=== PATIENT | female | born 1960 | race Two or more races ===

== ENCOUNTER 2024-05-19 08:15 | Outpatient (AMB) | payer MEDICARE, MEDICAID, SELFPAY ==
[2024-05-19 08:26] VITALS: BP 111/72; PULSE 76; RESP 18; TEMP 36.1; O2SAT 98; BMI 37.8
--- NOTE | 2024-05-19 08:26 | ORTHONT_ITS ---
Vital signs 05/19/24 08:26 Height 1.6 m Height Method Stated Weight 96.729 kg Weight Measurement Method Standing Scale BMI 37.8 BP 111/72 Blood Pressure Source Automatic Cuff Blood Pressure Location Right Upper Arm Position Sitting Respiration 18 Pulse 76 Pulse Source Monitor Temp 96.9 F Temp Source Temporal Artery Scan Pulse Oximetry (%) 98 Oxygen Delivery Method Room Air Med/Allergies Allergies & Medications Allergies Penicillins Allergy (Verified 05/19/24 08:27) Hives Medication Reconciliation celecoxib 200 mg capsule 200 mg PO BID 05/09/18 [History Confirmed 05/19/24] lisinopril 20 mg tablet 20 mg PO BID 05/09/18 [History Confirmed 05/19/24] omeprazole 20 mg tablet,delayed release 20 mg PO QDAY 05/09/18 [History Confirmed 05/19/24] hydrocodone 5 mg-acetaminophen 325 mg tablet ([place]) 1 tab PO Q6H PRN Pain 07/15/18 [History Confirmed 05/19/24] amlodipine 5 mg tablet 5 mg PO QDAY 05/19/24 [History Confirmed 05/19/24] atorvastatin 40 mg tablet 40 mg PO QDAY 05/19/24 [History Confirmed 05/19/24] Exam Exam Patient is in no acute distress and is cooperative with the examination today. Breathing is nonlabored. Patient has a normal mood and affect. Bilateral extremities were evaluated and demonstrates sensation intact to light touch. Palpable pedal pulses are present. No significant edema is present. Bilateral hips were examined. The patient has no pain with log roll of the hips. Internal rotation to 30 degrees and external rotation to 30 degrees is painless. Negative FADIR. Left knee was examined today. The left knee is in reasonable alignment. Range of motion from 0-120 degrees. Knee is stable to varus and valgus as well as AP translation with <5mm. Patient has a negative McMurrays. There is no pain with patellofemoral compression and no crepitus noted. The knee is nontender to palpation. The right knee was also examined. The right knee is in [varus] alignment. Range of motion from [0-115] degrees. Knee is stable to varus and valgus as well as AP translation with <5mm. Patient has a [negative] McMurrays. There is [no] pain with patellofemoral compression and [no] crepitus noted. The knee is [tender] to palpation [medially]. Patient has an MRI which demonstrates right knee arthritis of significant severity with a extruded meniscus and osteophytes medial Assessment and Plan Problem List (1) Arthritis of right knee: Status: Acute Plan: Patient is a 63-year-old female with right knee pain and right knee arthritis of significant severity. I would like to get x-rays to better Assess for arthritis. We will likely start with conservative treatment. Office Procedures GNS Level of Care Nursing/Assessment Patient Status: Initial/New Patient Nursing Assessment/Reassesment: Medication Reconciliation, Update PMH in EMR and Vital Signs Coordination of Care: Complex Care and Chronic Disease 1-5, Education Complex Pt/Fam, Consent,records obtained, informed consent, 1 Ins Authorization and Staff clarify orders Special Needs: Language special needs New Patient Charge New Patient Point Assignment: 8716 New Patient Point Charge: BR[employer]OOM CLIPPER Level 3 ([id number]) MA Intake Visit Data Collection New Patient or Established: New Patient (never been to [facility]) Reason for Visit:: RT KNEE PAIN Seen by Clinical Staff ONLY (RN/MA): No Kiosk Sales Representative Required: Yes PCP or OBGYN visit in last 3 months: Yes Hx Now: No Do You Feel Safe at Home: Yes Questionairres Past Medical History Past Medical History Have you ever been diagnosed with any of the following: Neurological Problems Seizures: No Cardiology Problems Congestive Heart Failure: No Hypertension: Yes (TAKES MEDS) Respiratory Problems Chronic Obstructive Pulmonary Disease (COPD): No Smoking: No Smoking Exposure: No Stomache/Intestinal Problems Gastrointestinal Bleed: Yes Genital/Urinary Problems Renal Disease: No Endocrine Problems Diabetes Mellitus Type 1: No Diabetes Mellitus Type 2: No Blood Problems Anemia: Yes Psychologic Problems Depression: Yes Anxiety: Yes Other Problems Blood Transfusions: No Anesthesia Reactions: No Subjective Visit Visit for: new patient and knee Immunization / Flu Flu Vaccine in the Last 12 Months: Yes Flu Vaccine Exclusion Criteria: Already Received History of Present Illness Chief complaint: RT KNEE PAIN Date of injury / onset of symptoms: 7 MONTHS AGO Gifty is a 63-year-old female with right knee pain and right knee arthritis. It has been ongoing for over 6 months. She has been on Celebrex. She walks with a limp because of the pain. SHe has not had any injections Personal History Occupation: UNEMPLOYED BMI Counceling provided: Yes Pain Pain level (0-10): 7 Pain duration: WITH MOVEMENT Pain location: inside (medial), outside (lateral), anterior and posterior Pain quality: sharp and aching Pain timing: increases with activity Associated signs & symptoms: none Ambulatory data Ambulatory device: none (KNEE BRACE) Walking distance (minutes): 15 Treatments Improvement with NSAIDS: yes Review of Systems Review of Systems: All systems negative unless otherwise noted in HPI.
== END 2024-05-19 08:56 | disposition home or self-care (01) ==
LOC: HODSRG 08:15
PROVIDERS: PCP Student in an Organized Health Care Education/Training Program; Referring Provider Student in an Organized Health Care Education/Training Program; Supervising Provider Orthopaedic Surgery Adult Reconstructive Orthopaedic Surgery; Visit Provider Orthopaedic Surgery Adult Reconstructive Orthopaedic Surgery
DX: M17.11 Unilateral primary osteoarthritis, right knee (principal); M25.561 Pain in right knee; I10 Essential (primary) hypertension
CPT/HCPCS: 73564; 99203; G0463

== ENCOUNTER 2024-05-23 08:07 | Outpatient (AMB) | payer MEDICARE, MEDICAID, SELFPAY ==
[2024-05-23 08:51] VITALS: BP 126/73; PULSE 75; RESP 18; TEMP 36.3; O2SAT 96; BMI 37.5
--- NOTE | 2024-05-23 08:51 | ORTHONT_ITS ---
Vital signs 05/23/24 08:51 Height 1.6 m Height Method Stated Weight 95.935 kg Weight Measurement Method Standing Scale BMI 37.5 BP 126/73 Blood Pressure Source Automatic Cuff Blood Pressure Location Right Upper Arm Position Sitting Respiration 18 Pulse 75 Pulse Source Monitor Temp 97.3 F Temp Source Temporal Artery Scan Pulse Oximetry (%) 96 Oxygen Delivery Method Room Air Med/Allergies Allergies & Medications Allergies Penicillins Allergy (Verified 05/23/24 08:52) Hives Medication Reconciliation celecoxib 200 mg capsule 200 mg PO BID 05/09/18 [History Confirmed 05/23/24] lisinopril 20 mg tablet 20 mg PO BID 05/09/18 [History Confirmed 05/23/24] omeprazole 20 mg tablet,delayed release 20 mg PO QDAY 05/09/18 [History Confirmed 05/23/24] hydrocodone 5 mg-acetaminophen 325 mg tablet ([place]) 1 tab PO Q6H PRN Pain 07/15/18 [History Confirmed 05/23/24] amlodipine 5 mg tablet 5 mg PO QDAY 05/19/24 [History Confirmed 05/23/24] atorvastatin 40 mg tablet 40 mg PO QDAY 05/19/24 [History Confirmed 05/23/24] Exam Exam Patient is in no acute distress and is cooperative with the examination today. Breathing is nonlabored. Patient has a normal mood and affect. Bilateral extremities were evaluated and demonstrates sensation intact to light touch. Palpable pedal pulses are present. No significant edema is present. Bilateral hips were examined. The patient has no pain with log roll of the hips. Internal rotation to 30 degrees and external rotation to 30 degrees is painless. Negative FADIR. Left knee was examined today. The left knee is in reasonable alignment. Range of motion from 0-120 degrees. Knee is stable to varus and valgus as well as AP translation with <5mm. Patient has a negative McMurrays. There is no pain with patellofemoral compression and no crepitus noted. The knee is nontender to palpation. The right knee was also examined. The right knee is in [varus] alignment. Range of motion from [0-115] degrees. Knee is stable to varus and valgus as well as AP translation with <5mm. Patient has a [negative] McMurrays. There is [no] pain with patellofemoral compression and [no] crepitus noted. The knee is [tender] to palpation [medially]. Patient has an MRI which demonstrates right knee arthritis of significant severity with a extruded meniscus and osteophytes medial X-rays demonstrate severe arthritis of the right knee with complete obliteration of the right medial joint space Assessment and Plan Problem List (1) Arthritis of right knee: Status: Acute Plan: Patient is a 63-year-old female with right knee pain and right knee arthritis of significant severity. The patient has significant arthritis. She has not had significant conservative treatment. We will start with a cortisone injection today.I discussed with her that it is possible that it does not work given the severity of arthritis . We attempted to do a knee injection today. Once again her knee she is in extreme pain and is very anxious. She would not let me touch her knee and thus we aborted the injection. Given her anxiety and sensitivity to pain, We discussed that if she cannot even tolerate an injection or may moving her knee around, that she is unlikely to do well with surgery. It appears that she does have poor coping mechanisms and I thus would recommend pain management is a surgery and apparently even cortisone injections are not an option due to anxiety and fear. She has been to the emergency room several times within the past year due to pain and arthritis of the right knee. We again discussed that given her pain threshold I do not think that she will do well with surgery and be a surgical candidate as I have a lot of fear of her compliance. I recommend she see either a another surgeon or a pain management doctor as I do not think surgery is a reasonable option Office Procedures GNS Level of Care Nursing/Assessment Patient Status: Established Patient Nursing Assessment/Reassesment: Medication Reconciliation, Update PMH in EMR and Vital Signs Coordination of Care: Complex Care and Chronic Disease 1-5, Education Complex Pt/Fam, Consent,records obtained, informed consent, Results/Orders obtained and Staff clarify orders Special Needs: Language special needs Established Patient Charge Established Patient Point Assignment: 95 Established Patient Point Charge: EP Level 3 (80-115) MA Intake Visit Data Collection New Patient or Established: Established Patient (seen at [facility] within 3 years) Reason for Visit:: F/U ON XRAYS Seen by Clinical Staff ONLY (RN/MA): No Verbal consent obtained for Telemed visit?: No Heat Seal Operator Required: Yes PCP or OBGYN visit in last 3 months: Yes Hx Now: No Do You Feel Safe at Home: Yes Authorities Contacted: N/A Questionairres Past Medical History Past Medical History Have you ever been diagnosed with any of the following: Neurological Problems Seizures: No Cardiology Problems Congestive Heart Failure: No Hypertension: Yes (TAKES MEDS) Respiratory Problems Chronic Obstructive Pulmonary Disease (COPD): No Smoking: No Smoking Exposure: No Stomache/Intestinal Problems Gastrointestinal Bleed: Yes Genital/Urinary Problems Renal Disease: No Endocrine Problems Diabetes Mellitus Type 1: No Diabetes Mellitus Type 2: No Blood Problems Anemia: Yes Psychologic Problems Depression: Yes Anxiety: Yes Other Problems Blood Transfusions: No Anesthesia Reactions: No Subjective Visit Visit for: new patient, follow up visit, knee and x-rays Immunization / Flu Flu Vaccine in the Last 12 Months: No Flu Vaccine Exclusion Criteria: No Exclusion Criteria and Already Received History of Present Illness Chief complaint: F/U XRAYS Date of injury / onset of symptoms: 7 MONTHS AGO Gifty is a 63-year-old female with right knee pain and right knee arthritis. This has been ongoing for over 6 months. She has been on Celebrex. She walks with a limp because of the pain. SHe has not had any injections Personal History Occupation: UNEMPLOYED Red flag PMH: BMI BMI Counceling provided: Yes Pain Pain level (0-10): 8 Pain duration: ALL DAY Pain location: inside (medial), outside (lateral), anterior and posterior Pain quality: sharp, aching, burning and shocking Pain timing: increases with activity Associated signs & symptoms: none Ambulatory data Ambulatory device: none Walking distance (minutes): 15 Treatments Improvement with previous injections: No Improvement with PT: No Improvement with NSAIDS: n/a Review of Systems Review of Systems: All systems negative unless otherwise noted in HPI.
== END 2024-05-23 09:13 | disposition home or self-care (01) ==
LOC: HODSRG 08:07
PROVIDERS: PCP Student in an Organized Health Care Education/Training Program; Referring Provider Student in an Organized Health Care Education/Training Program; Supervising Provider Orthopaedic Surgery Adult Reconstructive Orthopaedic Surgery; Visit Provider Orthopaedic Surgery Adult Reconstructive Orthopaedic Surgery
DX: M17.11 Unilateral primary osteoarthritis, right knee (principal); M25.561 Pain in right knee; I10 Essential (primary) hypertension; F41.9 Anxiety disorder, unspecified
CPT/HCPCS: 99213; J3301; J3490; G0463

== ENCOUNTER → 2024-06-14 | Outpatient (CLI) | payer MEDICARE, MEDICAID, SELFPAY ==
[2024-06-13 10:49] LABS: Basophils % (Auto) 1 % (0-2.5); Eosinophils # (Auto) 0.4 Thou/mm3 (0.0-0.5); Eosinophils % (Auto) 6 % (0-10); Hematocrit 37.9 % (36.0-46.0); Hemoglobin 12.8 g/dL (12.0-16.0); Immature Granulocytes % (Auto) 0 % (0-0); Immature Granulocytes Auto 0.01 Thou/mm3 (0.00-0.00); Lymphocytes # (Auto) 2.5 Thou/mm3 (1.0-4.8); Lymphocytes % (Auto) 40 % (10-50); Mean Corpuscular HGB Conc 33.8 g/dl (31.0-37.0); Mean Corpuscular Hemoglobin 29.4 pg (25.0-35.0); Mean Corpuscular Volume 87 fL (80-100); Monocytes # (Auto) 0.7 Thou/mm3 (0.0-0.8); Monocytes % (Auto) 11 % (0-12); Neutrophils # (Auto) 2.7 Thou/mm3 (1.8-7.7); Neutrophils % (Auto) 43 % (37-80); Nucleated Red Blood Cell % 0 /100 WBC (0); Platelet Count 190 Thou/mm3 (140-440); RDW Standard Deviation 43.9 fL (36.4-46.3); Red Blood Count 4.35 Miln/mm3 (4.00-5.20); White Blood Count 6.3 Thou/mm3 (3.6-11.0)
[2024-06-13 11:00] LABS: Partial Thromboplastin Time 26.4 Seconds (22.0-36.0); Prothrombin Time 10.8 Seconds (9.0-12.2)
--- NOTE | 2024-06-14 08:30 | XR_ITS ---
Examinations: Ultrasound-guided percutaneous breast biopsy, right complete Right breast sonography limited. Exam date and time: June 14, 2024 0902 hours INDICATIONS: Right breast sonogram March 30, 2024 BI-RADS 4 suspicious mass 1:00 position right breast. Informed consent provided. Technique: A timeout was completed verifying correct patient, procedure, site, positioning, and special equipment if applicable Informed consent provided. The patient was placed in a supine position for the breast biopsy. Sonographic images of the breast were performed for localization of the suspicious nodule The patient's breast was prepped and draped in sterile fashion. Maximum sterile barrier technique, hand hygiene, ultrasound sterile technique 1% lidocaine was used to anesthetize the skin and breast adjacent to the suspicious nodule. Utilizing ultrasonographic guidance, 8 core biopsies were obtained of the suspicious nodule utilizing an 18-gauge BioPince needle. The specimens appears satisfactory. US guided breast biopsy marker placement. Estimated blood loss 3 cc. The patient tolerated the procedure well and there were no complications. Impression: Successful ultrasound-guided percutaneous breast biopsy, right breast 1:00 nodule. Ultrasound guided breast biopsy marker placement.
== END | disposition home or self-care (01) ==
LOC: SDIM 08:13 → SIRX 08:38
PROVIDERS: Radiology Diagnostic Radiology; PCP Student in an Organized Health Care Education/Training Program; Referring Provider Student in an Organized Health Care Education/Training Program; Visit Provider Student in an Organized Health Care Education/Training Program
DX: N63.11 Unspecified lump in the right breast, upper outer quadrant (principal); Z01.812 Encounter for preprocedural laboratory examination
CPT/HCPCS: 19083; 36415; 85025; 85610; 85730; A4648

== ENCOUNTER → 2024-12-21 | Outpatient (CLI) | payer MEDICARE, MEDICAID, SELFPAY ==
--- NOTE | 2024-12-21 12:40 | XR_ITS ---
Examination: Bone densitometry Date and time of exam:December 21, 2024 1256 hours INDICATIONS: Menopause age 49 Technique: Lumbar spine and hip total bone mineralization values of an calculated. Peak reference and age match control results have been displayed. Findings: Lumbar spine total bone mineralization is1.283 gm/cm2. This is 2.1 standard deviations above peak reference. This is 3.9 standard deviations above age-matched controls. Hip total bone mineralization is 1.192 gm/cm2 This is 2.0 standard deviations above peak reference. This is 3.3 standard deviations above age-matched controls Impression: There is normal mineralization based on lumbar spine measurements. There is normal mineralization based on hip measurements
== END | disposition home or self-care (01) ==
LOC: CDIM 11:26
DX: Z13.820 Encounter for screening for osteoporosis (principal); M81.0 Age-related osteoporosis without current pathological fracture
CPT/HCPCS: 77080